=== PATIENT | male | born 1940 | race Caucasian/White ===

== ENCOUNTER 2023-02-02 11:45 | Observation (INO) ==
[2023-02-02] MEDS ORDERED: IOPAMIDOL 100 ML BOTTLE IV ONE (11:46)
[2023-02-02 12:02] LABS: POC Calcium, Ionized 1.19 (1.16-1.32); POC Creatinine 1.4 (0.6-1.2); POC Potassium 4.5 (3.3-5.1)
[2023-02-02 13:06] LABS: Basophils # (Auto) 0.05 K/mcL (0.00-0.30); Basophils % (Auto) 0.6 % (0.0-2.0); Eosinophils # (Auto) 0.18 K/mcL (0.00-0.70); Eosinophils % (Auto) 2.2 % (0.0-7.0); Hematocrit 42.6 % (40.1-51.0); Lymphocytes # (Auto) 2.83 K/mcL (1.50-4.80); Lymphocytes % (Auto) 33.9 % (15.5-49.0); Mean Cell Volume 94.7 fL (80.0-100.0); Mean Corpuscular HGB Conc 32.9 g/dL (31.0-36.0); Mean Platelet Volume 10.9 fL (8.8-12.5); Monocytes # (Auto) 0.94 K/mcL (0.10-0.90); Monocytes % (Auto) 11.2 % (1.0-12.0); Neutrophils % (Auto) 51.5 % (38.0-78.0); Platelet Count 214 K/mcL (140-440); Red Cell Distribution Width 13.2 % (11.5-14.5); WBC 8.4 K/mcL (4.5-11.0)
[2023-02-02 13:22] LABS: INR 2.1 (0.9-1.1); Prothrombin Time 24.5 sec (11.9-14.5)
[2023-02-02 13:25] LABS: ALT/SGPT 20 U/L (<40); AST/SGOT 25 U/L (<40); Alkaline Phosphatase 91 U/L (39-117); Bilirubin,Direct < 0.2 mg/dL (0-0.3); Bilirubin,Total 0.6 mg/dL (0.1-1.0); Globulin 3.3 gm/dL (2.2-3.7)
[2023-02-02] MEDS ORDERED: ASPIRIN 325 MG ENTERIC COATED TABLET PO ONE (13:39)
[2023-02-02] MEDS ORDERED: ASPIRIN 81 MG TAB.CHEW CHEWED ONE (14:11)
[2023-02-02] MEDS ORDERED: ONDANSETRON 4 MG/2 ML VIAL IV PRN (15:36)
[2023-02-02] MEDS ORDERED: IPRATROPIUM/ALBUTEROL 3 ML AMPUL.NEB NEB PRN (15:36)
[2023-02-02] MEDS ORDERED: SENNOSIDES 1 TABLET PO PRN (15:36)
[2023-02-02] MEDS ORDERED: ACETAMINOPHEN 325 MG TABLET PO PRN (15:36)
[2023-02-02] MEDS ORDERED: LACTULOSE 20 GM/30 ML ORAL.SOL PO PRN (15:36)
[2023-02-02] MEDS ORDERED: hydrALAZINE 20 MG/ML VIAL IV PRN (15:36)
[2023-02-02] MEDS ORDERED: DEXTROSE 50% 50 ML SYRINGE IV PRN (16:29)
[2023-02-02] MEDS ORDERED: MECLIZINE 25 MG TABLET PO PRN (16:31)
[2023-02-02] MEDS: INSULIN LISPRO 1 UNIT/0.01 ML UNIT SQ SCH (17:16)
[2023-02-02] MEDS ORDERED: METOPROLOL SUCCINATE 50 MG TAB.XL.24H PO SCH (21:00)
[2023-02-02] MEDS: INSULIN GLARGINE, HUMAN 1 UNIT/0.01 ML SQ SCH (21:08)
[2023-02-02] MEDS: 0.9 % SODIUM CHLORIDE 10 ML SYRINGE IV SCH (21:08)
[2023-02-02] MEDS: DOCUSATE SODIUM 100 MG CAPSULE PO SCH (21:08)
[2023-02-02] MEDS: DOXYCYCLINE HYCLATE 100 MG TABLET.ORL PO SCH (21:08)
[2023-02-03] MEDS: 0.9 % SODIUM CHLORIDE 10 ML SYRINGE IV SCH (05:35)
[2023-02-03 05:37] LABS: Basophils # (Auto) 0.05 K/mcL (0.00-0.30); Basophils % (Auto) 0.8 % (0.0-2.0); Eosinophils # (Auto) 0.22 K/mcL (0.00-0.70); Eosinophils % (Auto) 3.3 % (0.0-7.0); Hematocrit 38.5 % (40.1-51.0); Hemoglobin 12.4 g/dL (13.7-17.5); Lymphocytes # (Auto) 2.41 K/mcL (1.50-4.80); Lymphocytes % (Auto) 36.6 % (15.5-49.0); Mean Cell Volume 95.3 fL (80.0-100.0); Mean Corpuscular HGB Conc 32.2 g/dL (31.0-36.0); Mean Platelet Volume 10.8 fL (8.8-12.5); Monocytes # (Auto) 0.78 K/mcL (0.10-0.90); Monocytes % (Auto) 11.9 % (1.0-12.0); Neutrophils % (Auto) 47.1 % (38.0-78.0); Platelet Count 189 K/mcL (140-440); RBC 4.04 M/mcL (4.63-6.08); Red Cell Distribution Width 13.2 % (11.5-14.5); WBC 6.6 K/mcL (4.5-11.0)
[2023-02-03 05:59] LABS: Prothrombin Time 23.8 sec (11.9-14.5)
[2023-02-03 06:39] LABS: Hemoglobin A1C 9.4 % Hgb (4.0-6.0)
[2023-02-03 07:12] VITALS: TEMP 97
[2023-02-03 07:38] LABS: ALT/SGPT 18 U/L (<40); AST/SGOT 19 U/L (<40); Albumin 3.3 gm/dL (3.2-5.2); Albumin/Globulin Ratio 1.1 (1.0-2.3); Alkaline Phosphatase 69 U/L (39-117); Bilirubin,Total 0.5 mg/dL (0.1-1.0); Blood Urea Nitrogen 20 mg/dL (8-23); Calcium 8.8 mg/dL (8.6-10.4); Carbon Dioxide 25 mmol/L (22-30); Chloride 104 mmol/L (96-108); Glomerular Filtration Rate 50; Glucose 128 mg/dL (70-105)
[2023-02-03 07:49] LABS: Eosinophils % (Manual) 2 % (0-7); Lymphocytes % 44 % (15-49); Monocytes % (Manual) 10 % (1-12); Platelet Estimate NORMAL (Normal); RBC Morphology NORMAL (Normal); Segmented Neutrophils % 44 % (38-78)
[2023-02-03] MEDS ORDERED: ASPIRIN 81 MG TAB.CHEW CHEWED SCH (09:00)
[2023-02-03] MEDS ORDERED: ATORVASTATIN 40 MG TABLET PO SCH (09:00)
[2023-02-03] MEDS: DOCUSATE SODIUM 100 MG CAPSULE PO SCH (09:36)
[2023-02-03] MEDS: DOXYCYCLINE HYCLATE 100 MG TABLET.ORL PO SCH (09:37)
[2023-02-03] MEDS: INSULIN GLARGINE, HUMAN 1 UNIT/0.01 ML SQ SCH (09:37)
[2023-02-03] MEDS: INSULIN LISPRO 1 UNIT/0.01 ML UNIT SQ SCH (09:37)
[2023-02-03 11:35] VITALS: O2SAT 99
[2023-02-03] MEDS ORDERED: WARFARIN 5 MG TABLET PO SCH (14:00)
== END 2023-02-03 11:20 | disposition home health service (06) ==
LOC: ICU 11:45 → ED 11:45 → ICU 15:38
PROVIDERS: ADMIT Internal Medicine; ATTEND Internal Medicine